=== PATIENT | female | born 1940 | race Caucasian/White ===

== ENCOUNTER 2017-07-19 23:52 | Observation (INO) | payer MEDICARE, OTHER ==
[~2017-07-19] VITALS: Ht 157.5 cm; Wt 60.5 kg
[2017-07-20] VITALS (9 sets, daily range): BP systolic 118–163; BP diastolic 68–81
[2017-07-20] MEDS ORDERED: MELO15TA39 PO (00:19)
[2017-07-20] MEDS ORDERED: LISI1TAB6 PO (00:19)
[2017-07-20] MEDS ORDERED: OMEP20CA12 PO (00:19)
[2017-07-20 00:25] LABS: BASOPHILS % (AUTO) 1 % (0-10); EOSINOPHILS # (AUTO) 0.2 10^3/uL (0.0-0.3); EOSINOPHILS % (AUTO) 3 % (0-10); LYMPHOCYTES # (AUTO) 2.6 X 10^3 (1.0-4.0); LYMPHOCYTES % (AUTO) 50 % (12-44); MEAN CORPUSCULAR HEMOGLOBIN 31 PG (25-34); MEAN CORPUSCULAR HGB CONC 33 G/DL (32-36); MEAN CORPUSCULAR VOLUME 94 FL (80-99); MONOCYTES # (AUTO) 0.4 X 10^3 (0.0-1.0); MONOCYTES % (AUTO) 8 % (0-12); NEUTROPHILS % (AUTO) 38 % (42-75); PLATELET COUNT 250 10^3/uL (130-400); RED BLOOD COUNT 4.43 10^6/uL (4.35-5.85); RED CELL DISTRIBUTION WIDTH 11.4 % (10.0-14.5); WHITE BLOOD COUNT 5.2 10^3/uL (4.3-11.0)
[2017-07-20 00:29] LABS: INR 0.9 (0.8-1.4); PROTHROMBIN TIME PATIENT 11.8 SEC (12.2-14.7)
[2017-07-20 00:40] LABS: ALANINE AMINOTRANSFERASE 18 U/L (0-55); ALBUMIN 4.3 GM/DL (3.2-4.5); ANION GAP 11 MMOL/L (5-14); ASPARTATE AMINO TRANSFERASE 21 U/L (5-34); BILIRUBIN,TOTAL 0.6 MG/DL (0.1-1.0); BLOOD UREA NITROGEN 14 MG/DL (7-18); BUN/CREATININE RATIO 17; CALCIUM 9.8 MG/DL (8.5-10.1); CARBON DIOXIDE 24 MMOL/L (21-32); CHLORIDE 105 MMOL/L (98-107); CREATININE SERUM 0.82 MG/DL (0.60-1.30); GFR ESTIMATED > 60; GLUCOSE 105 MG/DL (70-105); MAGNESIUM 1.9 MG/DL (1.8-2.4); POTASSIUM 3.4 MMOL/L (3.6-5.0); SODIUM 140 MMOL/L (135-145); TOTAL PROTEIN 6.8 GM/DL (6.4-8.2)
[2017-07-20 00:47] LABS: MYOGLOBIN SERUM 38.8 NG/ML (10.0-92.0)
[2017-07-20] MEDS ORDERED: LIDOCAINE 2% VISCOUS 15 ML UDC PO ONE (01:00)
[2017-07-20] MEDS ORDERED: ASPIRIN 81 MG CHEW (CHILDREN'S ASA) PO ONE (01:00)
[2017-07-20] MEDS ORDERED: ANTACID SUSP 30 ML UDC (MYLANTA) PO ONE (01:00)
[2017-07-20] MEDS ORDERED: RT-ALBUTEROL SULF 2.5 MG/3 ML PRE-MIX VIAL INH STA (02:01)
--- NOTE | 2017-07-20 02:21 | ED Chest Pain ---
General Chief Complaint: Chest Pain Stated Complaint: SOB,BOTH ARMS NUMB Nursing Triage Note: c/o epigastric chest pain radiating to back, bilateral arm/face numbness, feeling soa x1 hr Nursing Sepsis Screen: No Definite Risk Source: patient Exam Limitations: no limitations History of Present Illness Time seen by provider: 00:18 Initial Comments This 76-year-old woman presents to the emergency room with complaints of dyspnea on exertion, chest pain on exertion, and paresthesias of the face and extremities. The dyspnea on exertion has actually been present for a few weeks. Pain in the lower chest or epigastric region with exertion has been present for months. Tonight she experienced an episode of paresthesia/numbness in the face and extremities while she was feeling short of breath. Patient presently has no local primary care provider. The family member set up an appointment for her to see Dr. Barragan next week for cardiac evaluation. She reports occasional diaphoresis and frequent leg cramping. She denies any nausea , lightheadedness, cough, fever, or other symptoms. She comments she does have a history of hiatal hernia. Allergies and Home Medications Allergies Coded Allergies: No Known Drug Allergies (Unverified , 07/20/17) Home Medications Lisinopril/Hydrochlorothiazide 1 Each Tablet, (Reported) Meloxicam 15 Mg Tablet, (Reported) Omeprazole 20 Mg Capsule., (Reported) Review of Systems Constitutional: see HPI EENTM: No Symptoms Reported Respiratory: See HPI Cardiovascular: See HPI Gastrointestinal: See HPI Genitourinary: No Symptoms Reported Musculoskeletal: no symptoms reported Skin: no symptoms reported Psychiatric/Neurological: No Symptoms Reported Endocrine: No Symptoms Reported Hematologic/Lymphatic: No Symptoms Reported Past Zncjneb-Uokaqc-Guylpb Hx Patient Social History Alcohol Use: Denies Use Recreational Drug Use: No Smoking Status: Never a Smoker Recent Foreign Travel: No Contact w/Someone Who Travel: No Recent Infectious Disease Expo: No Recent Hopitalizations: No Immunizations Up To Date Tetanus Booster (TDap): Unknown Seasonal Allergies Seasonal Allergies: No Surgeries History of Surgeries: Yes Surgeries: Abdominal, Adenoidectomy, Appendectomy, Gallbladder, Tonsillectomy Respiratory History of Respiratory Disorde: No Cardiovascular History of Cardiac Disorders: Yes Cardiac Disorders: Hypertension Neurological History of Neurological Disord: No Reproductive System : No 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 Genitourinary History of Genitourinary Disor: No Gastrointestinal History of Gastrointestinal Di: Yes Gastrointestinal Disorders: Gastroesophageal Reflux, Hiatal Hernia Musculoskeletal History of Musculoskeletal Dis: No Endocrine History of Endocrine Disorders: No HEENT History of HEENT Disorders: No Cancer History of Cancer: No Psychosocial History of Psychiatric Problem: Yes Behavioral Health Disorders: Anxiety, Depression Integumentary History of Skin or Integumenta: No Blood Transfusions History of Blood Disorders: No Physical Exam Vital Signs Vital Sign - Last 12Hours 07/20/17 00:05 Pulse Ox 99 O2 Delivery Room Air Capillary Refill : Less Than 3 Seconds General Appearance: No Apparent Distress, WD/WN HEENT: PERRL/EOMI, Normal ENT Inspection Neck: Normal Inspection, No Carotid Bruit, No JVD Respiratory: Chest Non Tender, Lungs Clear, Normal Breath Sounds, No Accessory Muscle Use, No Respiratory Distress, Other (no wheezing could be induced with forced expiration) Cardiovascular: Regular Rate, Rhythm, No Edema, No Murmur, Normal Peripheral Pulses Gastrointestinal: Normal Bowel Sounds, Soft, Tenderness (mild in the epigastrium) Extremity: Normal Capillary Refill, Normal Inspection, No Pedal Edema, Other ( calves mildly tender bilaterally, equal, status chronic. 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 Norm as Tested Skin: Normal Color, Warm/Dry Progress/Results/Core Measures Results/Orders Lab Results Laboratory Tests Test 07/20/17 00:05 Range/Units White Blood Count 5.2 4.3-11.0 10^3/uL Red Blood Count 4.43 4.35-5.85 10^6/uL Hemoglobin 13.8 11.5-16.0 G/DL Hematocrit 42 35-52 % Mean Corpuscular Volume 94 80-99 FL Mean Corpuscular Hemoglobin 31 25-34 PG Mean Corpuscular Hemoglobin Concent 33 32-36 G/DL Red Cell Distribution Width 11.4 10.0-14.5 % Platelet Count 250 130-400 10^3/uL Mean Platelet Volume 10.0 7.4-10.4 FL Neutrophils (%) (Auto) 38 L 42-75 % Lymphocytes (%) (Auto) 50 H 12-44 % Monocytes (%) (Auto) 8 0-12 % Eosinophils (%) (Auto) 3 0-10 % Basophils (%) (Auto) 1 0-10 % Neutrophils # (Auto) 2.0 1.8-7.8 X 10^3 Lymphocytes # (Auto) 2.6 1.0-4.0 X 10^3 Monocytes # (Auto) 0.4 0.0-1.0 X 10^3 Eosinophils # (Auto) 0.2 0.0-0.3 10^3/uL Basophils # (Auto) 0.0 0.0-0.1 10^3/uL Prothrombin Time 11.8 L 12.2-14.7 SEC INR Comment 0.9 0.8-1.4 Activated Partial Thromboplast Time 26 24-35 SEC Sodium Level 140 135-145 MMOL/L Potassium Level 3.4 L 3.6-5.0 MMOL/L Chloride Level 105 98-107 MMOL/L Carbon Dioxide Level 24 21-32 MMOL/L Anion Gap 11 5-14 MMOL/L Blood Urea Nitrogen 14 7-18 MG/DL Creatinine 0.82 0.60-1.30 MG/DL Estimat Glomerular Filtration Rate > 60 BUN/Creatinine Ratio 17 Glucose Level 105 70-105 MG/DL Calcium Level 9.8 8.5-10.1 MG/DL Magnesium Level 1.9 1.8-2.4 MG/DL Total Bilirubin 0.6 0.1-1.0 MG/DL Aspartate Amino Transf (AST/SGOT) 21 5-34 U/L Alanine Aminotransferase (ALT/SGPT) 18 0-55 U/L Alkaline Phosphatase 63 40-136 U/L Myoglobin 38.8 10.0-92.0 NG/ML Troponin I < 0.30 <0.30 NG/ML Total Protein 6.8 6.4-8.2 GM/DL Albumin 4.3 3.2-4.5 GM/DL Lipase 46 8-78 U/L My Orders Orders - JESSICA BATISTA MD Cbc With Automated Diff (07/20/17 00:18) Magnesium (07/20/17 00:18) Ekg Tracing (07/20/17 00:18) Cardiac Profile 1 (07/20/17 00:18) Comprehensive Metabolic Panel (07/20/17 00:18) Myoglobin Serum (07/20/17 00:18) Protime With Inr (07/20/17 00:18) Partial Thromboplastin Time (07/20/17 00:18) O2 (07/20/17 00:18) Monitor-Rhythm Ecg Trace Only (07/20/17 00:18) Lipid Panel (07/21/17 06:00) Saline Lock/Iv-Start (07/20/17 00:18) Chest Pa/Lat (2 View) (07/20/17 00:24) Lidocaine 2% Viscous 15 Ml (Xylocaine Vi (07/20/17 01:00) Antacid Suspension (Mylanta Suspension (07/20/17 01:00) Aspirin Chewable Tablet (Baby Aspirin Ch (07/20/17 01:00) Lipase (07/20/17 01:24) Albuterol Pre-Mix Nebs (Rt) (Proventil P (07/20/17 02:01) Svn Sm Volume Nebulizer Rt-Rfs (07/20/17 02:01) Metoprolol Succinate (Xl) Tab (Toprol Xl (07/20/17 02:30) Medications Given in ED Current Medications Medications Dose Ordered Sig/Henrry Route Start Time Stop Time Status Last Admin Dose Admin Al Hydrox/Mg Hydrox/Simethicone 30 ml ONCE ONCE PO 07/20/17 01:00 07/20/17 01:01 DC 07/20/17 01:04 30 ML Aspirin 324 mg ONCE ONCE PO 07/20/17 01:00 07/20/17 01:01 DC 07/20/17 01:04 324 MG Lidocaine HCl 15 ml ONCE ONCE PO 07/20/17 01:00 07/20/17 01:01 DC 07/20/17 01:04 15 ML Vital Signs/I&O Vital Sign - Last 12Hours 07/20/17 07/20/17 07/20/17 00:05 00:19 00:19 Temp 96.9 Pulse 66 Resp 16 B/P (MAP) 174/79 Pulse Ox 99 99 O2 Delivery Room Air Room Air Room Air Blood Pressure Mean: 110 Progress Note : Progress Note Aspirin was given for chest pain protocol. Workup was unremarkable. GI cocktail was given and failed to relieve epigastric pain with palpation. Patient denied any active chest pain or dyspnea while in the ER. She reports these symptoms typically occur with exertion. She received Toprol-XL [address] Woo's request. Patient also felt no change with an albuterol treatment. ECG Initial ECG Impression Date: Jul 20, 2017 Initial ECG Impression Time: 00:11 Initial ECG Rate: 66 Initial ECG Rhythm: Normal Sinus Initial ECG Intervals: Normal Initial ECG Impression: Normal Comment Normal sinus rhythm with no ST elevation or depression. No abnormal intervals or axis deviation. Diagnostic Imaging Diagonstic Imaging: Xray Plain Films/CT/US/NM/MRI: chest Comments Two-view chest x-ray viewed by me. Report not available. No acute abnormalities appreciated. Departure Communication Time/Spoke to Admitting Phy: 02:[address] Perry Time/Spoke to Consulting Physi: 02:00 Communication/Consulting Dr. Woo Impression Impression: Primary Impression: Chest pain on exertion Additional Impressions: Dyspnea on exertion Epigastric pain Disposition: ADMITTED INPATIENT Condition: Improved Admissions Decision to Admit Reason: Admit from ER (General) Decision to Admit/Date: Jul 20, 2017 Time/Decision to Admit Time: 02:00 Departure-Patient Inst. Referrals: VALENTIN DELGADO MD (PCP) Primary Care Physician JESSICA BATISTA MD Jul 20, 2017 02:21
[2017-07-20] MEDS ORDERED: meTOproloL SUCCINATE 50 MG (TOPROL XL) TAB PO SCH ×2 (02:30→09:00)
[2017-07-20] MEDS ORDERED: ASPI-999 PO (03:41)
[2017-07-20] MEDS ORDERED: CALC-250 PO (03:41)
[2017-07-20] MEDS ORDERED: FAMOTIDINE 20 MG (PEPCID) TABLET PO ONE (05:00)
[2017-07-20] MEDS ORDERED: NITROGLYCERIN SUBLINGUAL 0.4 MG TAB (NITROSTAT) SL PRN (05:45)
[2017-07-20] MEDS ORDERED: morphine INJ 4 MG/ML 1 ML (VIAL/SYRINGE) IV PRN (05:45)
--- NOTE | 2017-07-20 06:58 | Diagnostic Imaging Report ---
INDICATION: Chest pain. FINDINGS: Examination of the chest in the PA and lateral projections fails to reveal evidence of active parenchymal pathology or pleural effusion. The cardiac silhouette is normal. IMPRESSION: Negative chest. Dictated by: Dictated on workstation # [id number]
--- NOTE | 2017-07-20 08:33 | Consultation-Cardiology ---
HPI-Cardiology Cardiology Consultation: Date of Consultation 07/20/17 Time Seen by Provider: 08:40 Date of Admission Attending Physician Oswaldo Perry MD Admitting Physician Adria Campuzano MD Consulting Physician Vince Woo MD HPI: Chief Complaint: Chest pain Ms. Gunn is a 76 year old female admitted to ICU 4 from the ED. She reports over the course of the last several months she has been having increasing exertional dyspnea to the point she can not even walk across the street without feeling short of breath. She reports epigastric pain, which is localized. She describes it as a pressure. She does have epigastric tenderness. She states with activity she does have episodes of this epigastric discomfort as well with associated shortness of breath and diaphoresis. It can last for several hours. No c/o palpitations, syncope or near syncope. She reports the chest discomfort is worse with deep inspiration at times. The chest discomfort seems to be worse when lying down. She reports leg cramps at night which improve with ambulation. No n/v/d. No fever or chills. She reports a few weeks ago she and her traveled to [place] by car. Her spouse reports they only took a limited amount of breaks while traveling, but the symptoms were present even before the trip. She is currently not reporting any chest pain. Her spouse is at the bedside. Review of Systems-Cardiology Review of Systems Constitutional: As described under HPI, No As described under HPI, No no symptoms reported, No chills, No fever, No lightheadedness Eyes: No no symptoms reported, No blindness, No blurred vision, No contact lenses, No drainage, No decreased acuity, No foreign body sensation, No pain, No vision change Ears/Nose/Throat: No no symptoms reported, No chronic hearing loss, No ear discharge, No ear pain, No nasal drainage, No ulcerations Respiratory: As described under HPI Cardiovascular: As described under HPI Gastrointestinal: No abdomen distended, No abdominal pain, No blood streaked bowels, No constipation, No diarrhea, No nausea, No vomiting, No stool coloration changes Genitourinary: No burning, No dysuria, No discharge, No frequency, No flank pain, No hematuria, No urgency : Yes : No Skin: No rash, No skin related problems, No ulcerations Psychiatric/Neurological: No anxiety, No depression, No seizure, No focal weakness, No syncope Hematologic: No bleeding abnormalities EQY-Monlue-Ayzjzx Hx Patient Social History Alcohol Use: Denies Use Recreational Drug Use: No Smoking Status: Never a Smoker Recent Foreign Travel: No Recent Infectious Disease Expo: No Hospitalization with Isolation: Denies Physical Abuse Screen: No Sexual Abuse: No Immunizations Up To Date Tetanus Booster (TDap): Unknown Past Medical History PMH As described under Assessment. Family Medical History Family Medical History: She reports a son who had colon cancer with metastasis to the liver and lungs. She reports her father had lung cancer. She reports a sister with breast cancer. No family h/o CAD or premature SCD. Family History: Colon cancer son FH: breast cancer G8 SISTER FH: lung cancer 19 FATHER Allergies and Home Medications Allergies Coded Allergies: No Known Drug Allergies (Unverified , 07/20/17) Home Medications Aspirin 81 Mg Tablet.dr, 81 MG PO DAILY, (Reported) Cholecalciferol (Vitamin D3) 1,000 Unit Capsule, 2,000 UNIT PO DAILY, (Reported) Lisinopril/Hydrochlorothiazide 1 Each Tablet, 0.5 TAB PO DAILY, (Reported) Meloxicam 15 Mg Tablet, 15 MG PO DAILY, (Reported) Omeprazole 20 Mg Capsule.dr, 20 MG PO DAILY, (Reported) Potassium Chloride 10 Meq Tablet.er, 10 MEQ PO DAILY, #30 Prescribed by: SHANI DELGADO on 07/20/17 1128 Physical Exam-Cardiology Physical Exam Vital Signs/I&O Vital Sign - Last 12Hours 07/20/17 07/20/17 07/20/17 07/20/17 07:00 08:15 08:20 12:15 Temp 97.4 Pulse 51 B/P (MAP) Pulse Ox 98 97 O2 Delivery Room Air Room Air Room Air 07/20/17 07/20/17 07/20/17 12:59 13:00 16:25 Temp 98.7 Pulse 55 53 Resp 12 B/P (MAP) 121/69 Pulse Ox 98 98 O2 Delivery Room Air Room Air Capillary Refill : Less Than 3 Seconds Constitutional: appears stated age, No apparent distress, well-developed, well- nourished HEENT: PERRL, No discharge, hearing is well preserved, oral hygience is good, No ulceration, No xanthelasmas are seen Neck: No carotid bruit, carotid pulses are 2 + bilaterally Respiratory: No accessory muscle use, No respiratory distress, chest expansion is symmetric, chest is bilaterally symmetric, lungs clear to auscultation Cardiovascular: regular rate-rhythm, No JVD, S1 and S2 Gastrointestinal: tender (epigastric tenderness with palpation), soft, No spleenomegaly Rectal: deferred Extremities: No clubbing, No cyanosis, No significant edema Neurologic/Psychiatric: alert, oriented x 3, power is 5/5 both on sides Skin: No rash, No ulcerations Data Review Labs Laboratory Tests 07/20/17 00:05: White Blood Count 5.2, Red Blood Count 4.43, Hemoglobin 13.8, Hematocrit 42, Mean Corpuscular Volume 94, Mean Corpuscular Hemoglobin 31, Mean Corpuscular Hemoglobin Concent 33, Red Cell Distribution Width 11.4, Platelet Count 250, Mean Platelet Volume 10.0, Neutrophils (%) (Auto) 38L, Lymphocytes (%) (Auto) 50H, Monocytes (%) (Auto) 8, Eosinophils (%) (Auto) 3, Basophils (%) (Auto) 1, Neutrophils # (Auto) 2.0, Lymphocytes # (Auto) 2.6, Monocytes # (Auto) 0.4, Eosinophils # (Auto) 0.2, Basophils # (Auto) 0.0, Prothrombin Time 11.8L, INR Comment 0.9, Activated Partial Thromboplast Time 26, Sodium Level 140, Potassium Level 3.4L, Chloride Level 105, Carbon Dioxide Level 24, Anion Gap 11 , Blood Urea Nitrogen 14, Creatinine 0.82, Estimat Glomerular Filtration Rate > 60, BUN/Creatinine Ratio 17, Glucose Level 105, Calcium Level 9.8, Magnesium Level 1.9, Total Bilirubin 0.6, Aspartate Amino Transf (AST/SGOT) 21, Alanine Aminotransferase (ALT/SGPT) 18, Alkaline Phosphatase 63, Myoglobin 38.8, Troponin I < 0.30, Total Protein 6.8, Albumin 4.3, Lipase 46 07/20/17 06:20: Magnesium Level 2.1, Troponin I < 0.30, Triglycerides Level 58, Cholesterol Level 215H, LDL Cholesterol Direct 165H, VLDL Cholesterol 12, HDL Cholesterol 58 Radiology NAME: BONITA GUNN Bernadette [facility] REC#: [id number] PT STATUS: ADM [place] : 1940 PHYSICIAN: JESSICA BATISTA MD ADMIT DATE: 07/20/17/ICU Draft Date of Exam:07/20/17 CHEST PA/LAT (2 VIEW) INDICATION: Chest pain. FINDINGS: Examination of the chest in the PA and lateral projections fails to reveal evidence of active parenchymal pathology or pleural effusion. The cardiac silhouette is normal. IMPRESSION: Negative chest. Dictated on workstation # [id number] Dict: 07/20/17 0655 Trans: 07/20/17 0658 [id number] Interpreted by: GENEVIEVE CAMARA MD Electronically signed by: ECG Impression ECG Initial ECG Rhythm: Normal Sinus A/P-Cardiology Assessment/Admission Diagnosis Chest pain of undetermined etiology, likely noncardiac Exertional dyspnea of undetermined etiology, likely noncardiac Echo on 07/20/17: Normal LVEF, mild MR MPI on 07/20/17: No ischemia or infarction, normal LVEF HTN GERD - takes omeprazole H/O Hiatal hernia Leg cramps at hs Hypokalemia - likely d/t chronic diuretic use Discussion and Recomendations Chest discomfort with exertional dyspnea of undetermined etiology. We advise further cardiac work up d/t symptoms and risk factors. We advise echocardiogram to evaluate structure and LVEF. We advise MPI to evaluate perfusion.. Hypokalemia likely d/t chronic diuretic use. We will stop the HCTZ and replace potassium. H/O hiatal hernia and GERD. We advise further work up with medical services. Continue PPI. Further recommendations will be based on her hospital course. We would like to thank medical services for the consult. This consult is being scribed by Silas Singh APRN on behalf of Dr. Woo after discussion regarding plan of care. Clinical Quality Measures AMI/AHF: ASA po Prior to arrival: Yes DVT/VTE Risk/Contraindication: Risk Factor Score Per Nursin RFS Level Per Nursing on Admit: 2=Moderate Physician Assessment Physician Assessment No significant discomfort at this time Lungs: clear Cor: reg Ext: no c/c/e A&R * As documented in our note above that I updated (italics) and as noted below * Symptoms, based on cardiac testing, appear noncardiac. We recommend w/u for noncardiac chest discomfort. She will pursue this with her pcp * Risk factor modification reviewed * Outpatient f/u recommended ANITHA SINGH TENON MACHINE OPERATOR Jul 20, 2017 08:33 VINCE WOO MD FACP FAC CCDS Jul 20, 2017 17:04
[2017-07-20] MEDS ORDERED: ASPIRIN 81 MG CHEW (CHILDREN'S ASA) PO SCH (09:00)
[2017-07-20] MEDS ORDERED: HYDROCHLOROTHIAZIDE 12.5 MG (HCTZ) CAP PO SCH (09:00)
[2017-07-20] MEDS ORDERED: FAMOTIDINE 20 MG (PEPCID) TABLET PO SCH (09:00)
[2017-07-20] MEDS ORDERED: rOPINIRole 0.25 MG (REQUIP) TAB PO SCH (09:00)
[2017-07-20] MEDS ORDERED: lisINopril 10 MG (PRINIVIL) TAB PO SCH (09:00)
[2017-07-20] MEDS ORDERED: PANTOPRAZOLE 40 MG (PROTONIX) TAB PO NR (09:15)
[2017-07-20] MEDS ORDERED: KCL 20 MEQ TAB (K-DUR) PO NR (09:15)
[2017-07-20 09:31] LABS: MAGNESIUM 2.1 MG/DL (1.8-2.4)
[2017-07-20] MEDS ORDERED: REGADENOSON 0.4 MG/5 ML SYR (LEXISCAN) IV ONE ×2 (09:42→10:00)
[2017-07-20] MEDS ORDERED: POTA10TA10 PO (11:28)
--- NOTE | 2017-07-20 11:34 | Short Stay Summary-Hospitalist ---
HPI History of Present Illness: HPI/Chief Complaint CC: Chest pain HPI: This is a 76-year-old white female clinic patient of Dr. Campuzano to manages arthritis but has no primary care provider the presents to the emergency room with chest pain. She reports that it occurred when she was walking in her house across her living room and it was mid epigastric in nature. She reports no other further chest pain since admission. She does take omeprazole but has not had an EGD before. She is just returned from a cardiac stress test under Dr. Woo and will likely be discharged if that is negative for close follow- up as an outpatient to pursue the chest pain etiology. We talked about hypokalemia and she does report tingling in her fingers and feet and she does report that that has been helped with the potassium supplement so I did already send into the pharmacy. noted HCTZ inher BP med likely the cause of the low potassium. Source: patient, family Exam Limitations: no limitations Date Seen 07/20/17 Time Seen by Provider: 11:15 Attending Physician Oswaldo Perry MD PCP Adria Campuzano MD Referring Physician Date of Admission Jul 20, 2017 at 02:25 Home Medications & Allergies Home Medications Reviewed patient Home Medication Reconciliation Form Allergies Allergies Coded Allergies No Known Drug Allergies (Unverified07/20/17) Past Ipdqjer-Awdzcw-Esrbux Hx Patient Social History Marrital Status: Employed/Student: retired Alcohol Use: Denies Use Recreational Drug Use: No Smoking Status: Never a Smoker Physical Abuse Screen: No Sexual Abuse: No Recent Foreign Travel: No Contact w/other who traveled: No Recent Hopitalizations: No Recent Infectious Disease Expo: No Immunizations Up To Date Tetanus Booster (TDap): Unknown Seasonal Allergies Seasonal Allergies: No Surgeries Yes Abdominal, Adenoidectomy, Appendectomy, Gallbladder, Tonsillectomy Respiratory No Cardiovascular Yes Hypertension Neurological No Reproductive System : No 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 Genitourinary No Gastrointestinal Yes Gastroesophageal Reflux, Hiatal Hernia Musculoskeletal Yes Arthritis Endocrine History of Endocrine Disorders: No HEENT History of HEENT Disorders: No Cancer No Psychosocial History of Psychiatric Problem: Yes Behavioral Health Disorders: Anxiety, Depression Integumentary History of Skin or Integumenta: No Blood Transfusions History of Blood Disorders: No Family Medical History Family Hx: Colon cancer son FH: breast cancer G8 SISTER FH: lung cancer 19 FATHER Review of Systems Constitutional: see HPI EENTM: no symptoms reported Respiratory: no symptoms reported Cardiovascular: chest pain Gastrointestinal: no symptoms reported Genitourinary: no symptoms reported Musculoskeletal: no symptoms reported Skin: no symptoms reported Psychiatric/Neurological: No Symptoms Reported All Other Systems Reviewed Negative Unless Noted: Yes Physical Exam Physical Exam Vital Signs Vital Sign - Last 12Hours 07/20/17 00:05 Pulse Ox 99 O2 Delivery Room Air Capillary Refill : Less Than 3 Seconds General Appearance: No Apparent Distress, WD/WN Eyes: Bilateral Eye Normal Inspection, Bilateral Eye PERRL HEENT: PERRL/EOMI, Normal ENT Inspection, Pharynx Normal Neck: Full Range of Motion, Normal Inspection, Non Tender, Supple, Carotid Bruit Respiratory: Chest Non Tender, Lungs Clear, Normal Breath Sounds, No Accessory Muscle Use, No Respiratory Distress Cardiovascular: Regular Rate, Rhythm, No Edema, No Gallop, No JVD, No Murmur, Normal Peripheral Pulses Gastrointestinal: Normal Bowel Sounds, No Organomegaly, No Pulsatile Mass, Non Tender, Soft Back: Normal Inspection, No CVA Tenderness, No Vertebral Tenderness Extremity: Normal Capillary Refill, Normal Inspection, Normal Range of Motion, Non Tender, No Calf Tenderness, No Pedal Edema Neurologic/Psychiatric: Alert, Oriented x3, No Motor/Sensory Deficits, Normal Mood/Affect Skin: Normal Color, Warm/Dry Lymphatic: No Adenopathy Results Results/Procedures Lab Laboratory Tests 07/20/17 00:05 Short Stay Diagnosis Discharge Diagnosis-Short Stay Admission Diagnosis Assessment: Chest pain of uncertain etiology could be esophagitis related due to history of GERD awaiting stress test results Hypertension Hypokalemia with tingling in arms and legs Final Discharge Diagnosis Assessment: Chest pain of uncertain etiology could be esophagitis related due to history of GERD awaiting stress test results Hypertension Hypokalemia with tingling in arms and legs Conclusion Plan Plan: Await stress test results Replace potassium and sent prescription at 10 mEq daily Resume all home meds If stress test is normal will need to pursue etiology of chest pain as an outpatient Clinical Quality Measures AMI/AHF: ASA po Prior to arrival: Yes DVT/VTE Risk/Contraindication: Risk Factor Score Per Nursin RFS Level Per Nursing on Admit: 2=Moderate SHANI DELGADO DO Jul 20, 2017 11:34
[2017-07-20] MEDS ORDERED: CHOL10007 PO (12:17)
[2017-07-20] MEDS ORDERED: ASPI-983 PO (12:17)
--- NOTE | 2017-07-20 14:00 | STRESS TEST ---
DATE OF SERVICE: 07/20/2017 RESTING AND POST REGADENOSON TECHNETIUM 99M TETROFOSMIN SPECT CT IMAGING: ORDERING PHYSICIAN: Jane Singh APRN PRIMARY PHYSICIAN: Dr. Mccallum. OTHER PHYSICIAN: Dr. Chilo Christianson. CLINICAL DIAGNOSIS: Chest discomfort. Baseline images were carried out after injection of 9 mCi of technetium 99m Tetrofosmin. This was followed by 0.4 mg regadenoson and 28.4 mCi technetium 99m Tetrofosmin for stress imaging. The electrocardiogram showed sinus rhythm and did not change significantly with the regadenoson infusion. Review of images at rest and following stress does not indicate any significant perfusion defects consistent with significant myocardial ischemia or infarction. Gated images show normal global left ventricular systolic function with normal regional wall motion. Left ventricular ejection fraction is calculated to be 76%. Left ventricular end diastolic volume is 30 mL. TID is absent (1.01). CONCLUSIONS: 1. No evidence of any significant myocardial ischemia or infarction on this study. 2. Normal regional wall motion. 3. Normal global left ventricular systolic function with a calculated ejection fraction of 76% stenosis. Job ID: [id number] DocumentID: [id number] Dictated Date: 07/20/2017 13:23:17 Florist Designer Date: 07/20/2017 13:34:39 Dictated By: KINJAL CROSS MD, MA, FACP, FACC,
[2017-07-21] MEDS ORDERED: PANTOPRAZOLE 40 MG (PROTONIX) TAB PO SCH (07:00)
[2017-07-21] MEDS ORDERED: PANTOPRAZOLE 20 MG TABLET (PROTONIX) PO SCH (07:00)
[2017-07-21] MEDS ORDERED: VITAMIN D3 5,000 UNITS (CHOLECALCIFEROL ) CAPSULE PO SCH (09:00)
[2017-07-21] MEDS ORDERED: ASPIRIN 81 MG CHEW (CHILDREN'S ASA) PO SCH (09:00)
[2017-07-21] MEDS ORDERED: lisINopril 5 MG (PRINIVIL) TABLET PO SCH (09:00)
[2017-07-21] MEDS ORDERED: HYDROCHLOROTHIAZIDE 25 MG (HCTZ) TAB PO SCH (09:00)
[2017-07-21] MEDS ORDERED: MELOXICAM 7.5 MG (MOBIC) TABLET PO SCH (09:00)
== END 2017-07-20 17:17 | disposition home or self-care (01) ==
LOC: EDUNIT# 23:52 → ER 23:55 → UNDOADMOB 07-20 02:25 → ICU 07-20 02:25 → UNDODISOB 07-20 18:05
PROVIDERS: ADMIT Internal Medicine; ATTEND Internal Medicine
DX: R07.9 Chest pain, unspecified (principal); I10 Essential (primary) hypertension; R06.09 Other forms of dyspnea; E87.6 Hypokalemia; K21.9 Gastro-esophageal reflux disease without esophagitis; K44.9 Diaphragmatic hernia without obstruction or gangrene; Z79.899 Other long term (current) drug therapy
CPT/HCPCS: 36415; 71020; 78452; 80053; 80061; 83690; 83735; 83874; 84484; 85025; 85610; 85730; 93005; 93017; 93041; 93306

== ENCOUNTER → 2020-01-29 | Outpatient (CLI) | payer MEDICARE ==
[~2020-01-29] MED LIST: ASPI-983 PO; ASPI-999 PO; CALC-250 PO; CHOL10007 PO; LISI1TAB29 PO; MELO15TA39 PO; OMEP20CA18 PO; POTA10TA10 PO
== END ==
LOC: CARD 09:20
PROVIDERS: ATTEND Internal Medicine Cardiovascular Disease
DX: R07.9 Chest pain, unspecified (principal); E78.2 Mixed hyperlipidemia; I10 Essential (primary) hypertension
CPT/HCPCS: 93306

== ENCOUNTER → 2020-01-30 | Outpatient (CLI) | payer MEDICARE ==
[~2020-01-30] VITALS: Ht 157 cm; Wt 61.0 kg
[~2020-01-30] MED LIST changes: +CATHETER FLUSH 10 ML SYR IV PRN
[2020-01-30 13:21] VITALS: BP 147/79
--- NOTE | 2020-01-30 19:31 | STRESS TEST ---
DATE OF SERVICE: 01/30/2020 [facility] MYOVIEW STRESS TEST REPORT REFERRING PHYSICIAN: Dr. Adria Campuzano. Baseline heart rate is 54, baseline blood pressure 144/79. Baseline EKG is sinus rhythm with no ischemic changes. In summary, the patient was injected with 10.9 mCi of technetium-99 Myoview and the resting images were obtained. Then, the patient started exercising with a baseline heart rate, blood pressure and EKG mentioned above. The patient was able to exercise for 3 minutes 45 seconds on standard Hitesh protocol. With peak exercise level, EKG was showing nondiagnostic changes. Blood pressure 163/89. During recovery, heart rate and blood pressure returned to baseline. EKG returned to baseline. The resting and stress images were reviewed and compared in the short axis, horizontal long axis, and vertical long axis views. Review of the images showed breast attenuation, there is mild decreased uptake involving the mid to apical anterior wall with subtle reversibility. SSS is 5, SDS 3, TID value 1.04. On the gated images, the left ventricle appeared to be in normal size with normal contractility. Calculated ejection fraction 77%. CONCLUSION: 1. Fair exercise tolerance, a total of 3 minutes 45 seconds on standard Hitesh protocol, total of 5.4 METS, achieving 93% of maximum expected heart rate. 2. Appropriate heart rate and blood pressure response to exercise returned to baseline during recovery. 3. Breast attenuation affecting the quality of the images. There is questionable ischemia in the mid to apical anterior wall, probably due to the breast attenuation. 4. Small left ventricular size with good contractility. Calculated ejection fraction 77%. 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
== END ==
LOC: CARD 11:47
PROVIDERS: ATTEND Internal Medicine Cardiovascular Disease
DX: R07.9 Chest pain, unspecified (principal); E78.2 Mixed hyperlipidemia; I10 Essential (primary) hypertension; N64.89 Other specified disorders of breast
CPT/HCPCS: 78452; 93017

== ENCOUNTER 2020-02-06 07:34 | Day surgery (SDC) | payer MEDICARE, OTHER ==
[~2020-02-06] VITALS: Ht 157 cm; Wt 62.0 kg
[2020-02-06] VITALS (9 sets, daily range): BP systolic 113–152; BP diastolic 66–82
[~2020-02-06 07:34] MED LIST changes: -CATHETER FLUSH 10 ML SYR IV PRN; +HEParin (CATH LAB) 2,000 ML IV ONE; +LIDOCAINE 1% INJ 20 ML 20 ML VIAL ONE; +NS IV 1000 ML 1,000 ML ONE
[2020-02-06] MEDS ORDERED: NS IV 1000 ML 1,000 ML IV SCH ×2 (07:45→10:15)
[2020-02-06 08:01] LABS: HEMOGLOBIN 14.2 G/DL (11.5-16.0); MEAN PLATELET VOLUME 9.6 FL (7.4-10.4); RED CELL DISTRIBUTION WIDTH 11.7 % (10.0-14.5); WHITE BLOOD COUNT 3.6 10^3/uL (4.3-11.0)
[2020-02-06 08:03] LABS: BILIRUBIN,URINE NEGATIVE (NEGATIVE); CLARITY,URINE CLEAR; COLOR,URINE YELLOW; GLUCOSE, URINE (UA) NEGATIVE (NEGATIVE); KETONES,URINE NEGATIVE (NEGATIVE); LEUKOCYTE ESTERASE ,URINE TRACE (NEGATIVE); NITRITE,URINE NEGATIVE (NEGATIVE); PH,URINE 5.5 (5-9); PROTEIN,URINE NEGATIVE (NEGATIVE)
[2020-02-06] MEDS ORDERED: EQUATE ALLERGY PO (08:05)
[2020-02-06] MEDS ORDERED: PANT40TA3 PO (08:05)
[2020-02-06] MEDS ORDERED: ASPI-983 PO (08:05)
[2020-02-06] MEDS ORDERED: MAGN200T PO (08:05)
--- NOTE | 2020-02-06 08:12 | Diagnostic Imaging Report ---
INDICATION: Pre-heart catheterization. Patient's chest pain and shortness of breath. Time of exam 7:58 AM Correlation is made with prior chest 07/20/2017. Heart size stable. Tiny calcific nodules throughout both lungs are noted and unchanged. There are no infiltrates. No effusion or pneumothorax. IMPRESSION: Stable chest. No acute features detected. Dictated by: Dictated on workstation # [id number]
[2020-02-06 08:13] LABS: BACTERIA,URINE NEGATIVE /HPF; RBC,URINE 0-2 /HPF
[2020-02-06 08:16] LABS: INR 0.9 (0.8-1.4); PROTHROMBIN TIME PATIENT 12.4 SEC (12.2-14.7)
[2020-02-06 08:24] LABS: ALANINE AMINOTRANSFERASE 19 U/L (0-55); ALBUMIN 4.5 GM/DL (3.2-4.5); ALKALINE PHOSPHATASE 61 U/L (40-136); BILIRUBIN,TOTAL 0.9 MG/DL (0.1-1.0); BUN/CREATININE RATIO 15; CALCIUM 9.8 MG/DL (8.5-10.1); CARBON DIOXIDE 25 MMOL/L (21-32); CHLORIDE 106 MMOL/L (98-107); CHOLESTEROL 257 MG/DL (< 200); CREATININE SERUM 0.75 MG/DL (0.60-1.30); GFR ESTIMATED > 60; GLUCOSE 104 MG/DL (70-105); HDL CHOLESTEROL 79 MG/DL (40-60); POTASSIUM 3.6 MMOL/L (3.6-5.0); SODIUM 142 MMOL/L (135-145); TRIGLYCERIDES 83 MG/DL (<150); VLDL CHOLESTEROL 17 MG/DL (5-40)
[2020-02-06] MEDS ORDERED: MIDAZOLAM 5 MG/5 ML (VERSED) VIAL ONE (09:24)
[2020-02-06] MEDS ORDERED: HEParin 1000 UNIT/ML (10ML VIAL) FOR BOLUS ONE (09:24)
[2020-02-06] MEDS ORDERED: VERAPAMIL 5 MG/2 ML (CALAN) VIAL IV ONE (09:24)
[2020-02-06] MEDS ORDERED: fentaNYL INJECTION 100 MCG/2 ML AMP ONE (09:24)
[2020-02-06] MEDS ORDERED: NITRO DRIP 25000 MCG/D5W 250 ML IV ONE (09:25)
[2020-02-06] MEDS ORDERED: ATOR10TA PO (10:16)
--- NOTE | 2020-02-06 10:17 | Discharge Inst-Post CATH ---
Discharge Inst-CATH/EP Problems Reviewed?: Yes Post Cardiac Cath/EP D/C Inst Follow Up/Plan Appointment with Dr. EATON's office in 4 weeks <b>CARDIAC CATH/EP PROCEDURE DISCHARGE INSTRUCTIONS</b> ACTIVITY * Go Home directly and rest. * Limit activity of the leg (or wrist if it was used) for 7 days including aerobics, swimming, jogging, bicycling, etc. * Restrict stair-climbing for 7 days if possible, if not, climb up with your non-cath leg, then bring together on the same step. * Avoid lifting, pushing, pulling or excessive movement of the affected extremity for 7 days. * Customary sexual activity may be resumed after 2 days-use caution not to use a position that strains or causes pain to the affected extremity. * No driving for 24 hours. * NO SMOKING. * Avoid straining for bowel movements for 7 days. * Gentle walking on level ground is allowed. * Returning to work will depend on the type of procedure and the results. Your doctor will discuss this with you. CALL YOUR DOCTOR FOR ANY OF THE FOLLOWING: *If bleeding from the puncture site occurs- Apply gentle pressure to site with clean cloth and call your doctor or EMS. * If a knot or lump forms under the skin, increases in size, or causes pain. * If bruising appears to be worsening or moving further down your leg instead of disappearing. * Temperature above 101 F. CARE OF YOUR GROIN INCISION; * Bruising or purple discoloration of the skin near the puncture site is common. * You may shower only, no bathtub bathing for 5 days. Be careful to avoid slipping as your leg may feel stiff. * If a closure device was used on your femoral artery, please see the attached guide regarding care of the device and your leg. * Leave dressing on FOR 24 hours. CARE OF YOUR WRIST INCISION; * Bruising or purple discoloration of the skin near the puncture site is common. * You may shower. * DO NOT submerge wrist. * Leave dressing on FOR 24 hours. THOMAS EATON MD Feb 06, 2020 10:17
--- NOTE | 2020-02-06 10:20 | Cardiac Cath Report ---
Cardiac Cath Report Physician (s)/Electroplating Laborer (s) Physician THOMAS EATON MD Pre-Procedure Diagnosis Pre-Procedure Diagnosis: Coronary artery disease Post-Procedure Note Procedure Start Date: Feb 06, 2020 Name of Procedure: Left heart catheterization Findings/Procedure Note PROCEDURE NOTE: 79-year-old lady with history of hypertension, hyperlipidemia, had an abnormal stress test, scheduled for cardiac catheterization possible PTCA. After explaining the procedure to the patient, all pros and cons were explained, all questions were answered. The patient signed the consent and then she was placed on the cardiac catheterization laboratory. Groin was prepped SL fashion local anesthesia was used. Sheath placed in the right radial artery. Bern catheter advanced to the left ventricular cavity, pressure was measured, no left ventriculogram was done, pullback LV to aorta was done, intubated the coronary system and angiogram was done. At the end of the procedure the sheath was removed. Vascular band was used FINDINGS: Hemodynamics LV 117/13, end-diastolic pressure of 13 Aorta 122/70 mean of 92 ANATOMY: Left Main is free of obstructive disease Left Anterior Descending has mild disease distally nonobstructive disease Left Circumflex has no obstructive disease Right Coronory Artery is large dominant artery with no obstructive disease LV Gram was not done, pressure was measured CONCLUSION: 1. Mild coronary artery disease, the LAD is a small artery with small vessel disease distally 2. Normal left ventricular end-diastolic pressure DISCUSSION AND RECOMMENDATION: Medical therapy is recommended no intervention is needed Anesthesia Type: Conscious Sedation Estimated blood loss (mL): 15 ml Contrast Amount: 50 ml Total Radiation Dose: 183 mGy Post-Procedure Diagnosis Post-operative diagnosis: Chest pain Coronary artery disease Hypertension Hyperlipidemia THOMAS EATON MD Feb 06, 2020 10:20
== END 2020-02-06 13:10 | disposition home or self-care (01) ==
LOC: CATH 07:34 → SDC 10:30 → CATH 13:10
PROVIDERS: ATTEND Internal Medicine Cardiovascular Disease
DX: I25.10 Atherosclerotic heart disease of native coronary artery without angina pectoris (principal); I10 Essential (primary) hypertension; I65.29 Occlusion and stenosis of unspecified carotid artery; E78.2 Mixed hyperlipidemia; K21.9 Gastro-esophageal reflux disease without esophagitis; Z79.82 Long term (current) use of aspirin; Z79.899 Other long term (current) drug therapy; Z90.89 Acquired absence of other organs; Z90.49 Acquired absence of other specified parts of digestive tract; Z80.9 Family history of malignant neoplasm, unspecified
CPT/HCPCS: 36415; 71045; 80053; 80061; 81000; 85027; 85610; 85730; 87081; 93458

== ENCOUNTER → 2020-03-28 | Outpatient (CLI) | payer MEDICARE, OTHER ==
[~2020-03-28] MED LIST changes: +ATOR10TA PO; +EQUATE ALLERGY PO; -HEParin (CATH LAB) 2,000 ML IV ONE; +HOLD METFORMIN - RECEIVED CONTRAST 20 ML VIAL IV SCH; +IOHEXOL 350 MG/ML 100 ML (OMNIPAQUE 350) VIAL IV ONE; -LIDOCAINE 1% INJ 20 ML 20 ML VIAL ONE; +MAGN200T PO; +NS 100 ML (IVPB) BAG IV ONE; -NS IV 1000 ML 1,000 ML ONE; +PANT40TA3 PO
[2020-03-28 11:44] LABS: BUN/CREATININE RATIO 11; GFR ESTIMATED > 60
--- NOTE | 2020-03-28 13:00 | Diagnostic Imaging Report ---
EXAMINATION: CT Chest with intravenous contrast. TECHNIQUE: Multiple contiguous axial images were obtained through the chest after the uneventful administration of intravenous contrast. All CT scans use one or more of the following dose optimizing techniques: automated exposure control, MA and/or KvP adjustment based on a patient size and exam type, or iterative reconstruction. HISTORY: DYSPNEA COMPARISON: None available. FINDINGS: There is no edema or pneumonia. No pleural effusion. No pneumothorax. There is a 5 mm left upper lobe noncalcified nodule (series 3, image 71). There are numerous tiny bilateral calcified pulmonary nodules. Heart size is normal. There are mild coronary artery calcifications. No pericardial effusion. Aorta is normal in caliber. There is no axillary or supraclavicular lymphadenopathy. There is no mediastinal lymphadenopathy. There are calcified mediastinal lymph nodes. Limited views of the upper abdomen show the gallbladder to be absent. There are no suspicious osseus lesions. IMPRESSION: 1. Numerous tiny bilateral calcified pulmonary nodules are likely sequela of granulomatous infection or remote viral infection. There is a single 5 mm noncalcified nodule. According to the Fleischner Society guidelines: In a low risk patient, no routine follow up is recommended. In a high risk patient, consider optional CT at 12 months. Dictated by: Dictated on workstation # [id number]
--- NOTE | 2020-03-28 13:40 | NUR ---
PT EXERCISED THE ENTIRE TEST WITHOUT O2 AND SATS WERE 96% AND ABOVE. HR WAS 61 AT REST AND MAXED AT 93 BPM. PT WALK 1400 FEET VERY BRISKLY WITHOUT ANY BREAKS OR COMPLICATIONS. Addendum: 03/28/20 at 1341 by FABIANA PETERSON RT Amended: Links added.
== END ==
LOC: RT 11:14
PROVIDERS: ATTEND Nurse Practitioner Family
DX: G47.10 Hypersomnia, unspecified (principal); R06.83 Snoring
CPT/HCPCS: 36415; 71260; 82565; 84520; 94761

== ENCOUNTER → 2020-04-28 | Outpatient (CLI) | payer MEDICARE, OTHER ==
[~2020-04-28] MED LIST changes: -HOLD METFORMIN - RECEIVED CONTRAST 20 ML VIAL IV SCH; -IOHEXOL 350 MG/ML 100 ML (OMNIPAQUE 350) VIAL IV ONE; -NS 100 ML (IVPB) BAG IV ONE; +RT-ALBUTEROL SULF 2.5 MG/3 ML PRE-MIX VIAL INH ONE; +RT-ALBUTEROL SULF 2.5 MG/3 ML PRE-MIX VIAL ONE
== END ==
LOC: RT 10:10
PROVIDERS: ATTEND Nurse Practitioner Family
DX: K44.9 Diaphragmatic hernia without obstruction or gangrene (principal); G47.10 Hypersomnia, unspecified
CPT/HCPCS: 94060; 94726; 94729

== ENCOUNTER → 2021-05-06 | Outpatient (CLI) | payer MEDICARE, OTHER ==
[~2021-05-06] MED LIST changes: +ASPI-1238 PO; -ASPI-983 PO; +CATHETER FLUSH 10 ML SYR IV PRN; +HOLD METFORMIN - RECEIVED CONTRAST 20 ML VIAL IV SCH; +IOHEXOL 350 MG/ML 100 ML (OMNIPAQUE 350) VIAL IV ONE; +NS 100 ML (IVPB) BAG IV ONE; -PANT40TA3 PO; +PANT40TA52 PO; -RT-ALBUTEROL SULF 2.5 MG/3 ML PRE-MIX VIAL INH ONE; -RT-ALBUTEROL SULF 2.5 MG/3 ML PRE-MIX VIAL ONE
[2021-05-06 11:47] LABS: BUN/CREATININE RATIO 21; CREATININE SERUM 0.84 MG/DL (0.60-1.30); GFR ESTIMATED > 60
--- NOTE | 2021-05-06 12:57 | Diagnostic Imaging Report ---
PROCEDURE: CT chest with contrast only. TECHNIQUE: Multiple contiguous axial images were obtained through the chest after administration of intravenous contrast. Auto Exposure Controls were utilized during the CT exam to meet ALARA standards for radiation dose reduction. INDICATION: Lung nodules. FINDINGS: The previous CT chest exam of 03/28/2020 noted numerous tiny bilateral calcified pulmonary nodules. These were felt to be sequela of a prior granulomatous infection. There was also a 5 mm noncalcified nodule along the periphery of the left upper lung. That finding is again evident on this study and does not appear to have changed significantly in size or appearance (image 68 series 3). The stability of this finding over a greater than 1 year period suggests is not related to an aggressive neoplastic process. I do suspect that this is a benign lesion. Even so, it may prove worthwhile to have a followup CT chest exam in 1 year for continued evaluation. There is no sign of an acute cardiopulmonary abnormality. The lungs are clear and there is no evidence for pneumonia, failure, or pleural effusion. The heart size is within normal limits and stable when compared to the prior study. The aorta is not abnormally dilated and there is no sign of a dissection. There is no defect within the pulmonary arteries to indicate a pulmonary embolus. There is no mediastinal or hilar adenopathy noted. The thyroid gland, where visualized, is unremarkable. There is no obvious breast mass. The sections through the upper abdomen fail to show any sign of an acute abnormality. As noted on the prior exam, the gallbladder is surgically absent and the common bile duct near its entry into the head of the pancreas is dilated; however, there is still no obstructive calculus or mass identified. The bone windows are unremarkable for a fracture or for a destructive lesion. IMPRESSION: 1. The small noncalcified nodule in the left upper lung seen previously is again evident and appears stable. Most likely, this is a benign process. Recommendations as above. 2. There is no other parenchymal lung mass evident to suggest malignancy. 3. There is no sign of an acute cardiopulmonary abnormality. Dictated by: Dictated on workstation # [id number]
== END ==
LOC: RAD 11:21
PROVIDERS: ATTEND Internal Medicine Critical Care Medicine
DX: R91.8 Other nonspecific abnormal finding of lung field (principal)
CPT/HCPCS: 36415; 71260; 82565; 84520

== ENCOUNTER → 2023-01-26 | Outpatient (CLI) | payer MEDICARE, OTHER ==
[~2023-01-26] MED LIST changes: -CATHETER FLUSH 10 ML SYR IV PRN; -HOLD METFORMIN - RECEIVED CONTRAST 20 ML VIAL IV SCH; -IOHEXOL 350 MG/ML 100 ML (OMNIPAQUE 350) VIAL IV ONE; -LISI1TAB29 PO; +LISI1TAB44 PO; -NS 100 ML (IVPB) BAG IV ONE
--- NOTE | 2023-01-26 14:26 | Diagnostic Imaging Report ---
EXAMINATION: Right shoulder radiographs, 3 views. COMPARISON: None. HISTORY: 82-year-old female, right shoulder pain. FINDINGS: The acromioclavicular joint is normally aligned. There are very mild acromioclavicular degenerative changes without undersurface osteophyte. Humeral head is normally positioned relative to the glenoid. There is no identified acute fracture. The glenohumeral joint space is well-maintained. There are multiple calcified nodules in the lungs bilaterally. IMPRESSION: 1. Unremarkable evaluation of the glenohumeral joint. 2. Very mild acromioclavicular degenerative changes without undersurface osteophyte. 3. Numerous subcentimeter calcified bilateral pulmonary nodules which may relate to sequela of prior granulomatous disease. Dictated by: Dictated on workstation # [id number]
== END ==
LOC: RAD 11:01
PROVIDERS: ATTEND Family Medicine
DX: M19.011 Primary osteoarthritis, right shoulder (principal); R91.8 Other nonspecific abnormal finding of lung field
CPT/HCPCS: 73030

== ENCOUNTER → 2023-03-03 | Outpatient (CLI) | payer MEDICARE, OTHER | LOC: ORTHO 13:59 | PROVIDERS: ATTEND Orthopaedic Surgery | DX: M25.511 Pain in right shoulder (principal) | CPT/HCPCS: 20610; G0463; 99203 ==

== ENCOUNTER → 2023-04-06 | Outpatient (CLI) | payer MEDICARE, OTHER | LOC: ORTHO 08:29 | PROVIDERS: ATTEND Orthopaedic Surgery | DX: M75.51 Bursitis of right shoulder (principal) | CPT/HCPCS: 99213 ==

== ENCOUNTER → 2023-06-07 | Outpatient (CLI) | payer MEDICARE, OTHER | LOC: ORTHO 09:19 | PROVIDERS: ATTEND Orthopaedic Surgery | DX: M75.51 Bursitis of right shoulder (principal) | CPT/HCPCS: 20610 ==